=== PATIENT | female | born 1995 | race African-American/Black ===

== ENCOUNTER 2016-10-26 12:13 | Emergency (ER) | payer MEDICAID ==
[~2016-10-26] VITALS: Ht 162.6 cm; Wt 43.6 kg
[2016-10-26] MEDS ORDERED: ONDANSETRON HCL 4 MG TABLET PO ONE (12:45)
[2016-10-26 12:59] LABS: APPEARANCE,URINE CLOUDY (CLEAR); GLUCOSE, URINE (UA) NEGATIVE (NEGATIVE); KETONES,URINE 40 mg/dL (NEGATIVE); LEUKOCYTE ESTERASE ,URINE SMALL (NEGATIVE); OCCULT BLOOD,URINE SMALL (NEGATIVE); PH,URINE 6.5 (5.0-8.0); PROTEIN,URINE SEE CONFIRM (NEGATIVE)
[2016-10-26 13:01] LABS: ADD UA MICROSCOPIC YES
[2016-10-26 13:03] LABS: SULFOSALICYLIC ACID,URINE 1+ (Negative)
[2016-10-26 13:04] LABS: SQUAMOUS EPITHELIAL CELL,UR Few /LPF (None Seen)
[2016-10-26 13:30] VITALS: BP 118/72
== END 2016-10-26 13:55 | disposition home or self-care (01) ==
LOC: EDUNIT# 12:13 → EMS 12:15
DX: R11.0 Nausea (principal); K59.00 Constipation, unspecified; F12.10 Cannabis abuse, uncomplicated
CPT/HCPCS: 81001; 81002; 99283; Q0162